=== PATIENT | male | born 1965 ===

== ENCOUNTER 2024-12-05 07:45 | Inpatient (IN) | payer OTHER ==
[~2024-12-05] VITALS: Ht 172.7 cm; Wt 92.5 kg
[2024-12-05 08:32] LABS: BASO % 0.6 % (0.1-1.2); EOS # 0.10 (0.04-0.54); EOS % 1.5 % (0.7-7.0); LYMPH # 1.49 (1.18-3.74); LYMPH % 22.6 % (19.3-53.1); MEAN PLATELET VOLUME 9.70 fl (9.4-12.4); MONO # 0.60 (0.24-0.82); MONO % 9.1 % (4.7-12.5); NEUT # 4.33 (1.56-6.13); NEUT % 65.9 % (34.0-71.1); RED CELL DISTRIBUTION WIDTH 13.2 % (11.6-14.4)
[2024-12-05 08:44] LABS: COVID-19 AG NEGATIVE (NEGATIVE)
[2024-12-05 08:45] LABS: URINE APPEARANCE Clear; URINE BILIRRUBIN Negative (NEGATIVE); URINE BLOOD Negative; URINE COLOR Yellow; URINE GLUCOSE Negative (NEGATIVE); URINE KETONE Trace (NEGATIVE); URINE LEUKOCYTE Negative; URINE NITRATE Negative; URINE PROTEIN Negative (NEGATIVE); URINE UROBILINOGEN 1.0 E.U./dl
[2024-12-05 08:46] LABS: URINE RBC 3.6 uL (0.0-20.8)
[2024-12-05 08:51] LABS: INR 1.03
[2024-12-05 08:55] LABS: URINE BACTERIA 3.5 uL (0.0-1933); URINE CAST 0.00 uL (0.0-1.40); URINE EPITHELIAL CELLS 0.3 uL (0.0-38.8); URINE WBC 1.0 uL (0.0-23.2)
[2024-12-05] MEDS ORDERED: ATIVAN0.5 M1 PO (09:04)
[2024-12-05] MEDS ORDERED: LIPITOR20 MG PO (09:04)
[2024-12-05] MEDS ORDERED: LEXAPRO20 MG PO (09:04)
[2024-12-05] MEDS ORDERED: WELLBUTRIN XL300 MG PO (09:05)
[2024-12-05] MEDS ORDERED: FOSAMAX70 MG PO (09:05)
[2024-12-05] MEDS ORDERED: MULTI VITAMIN1 EACH PO (09:07)
[2024-12-05 09:08] VITALS: BP 121/82
[2024-12-05 09:34] LABS: BUN CREA RATIO 19.0 (7.0-25.0); CREATININE SERUM 0.97 mg/dL (0.70-1.30); GFR 79.77; GLUCOSE FASTING 86.0 mg/dL (65-100); OSMOLALITY SERUM 284.0 MOSM/KG (275-295)
[2024-12-05 11:44] LABS: RH NEGATIVE
[2024-12-11] MEDS ORDERED: HEMOSTATIC MATRIX 1 KIT KIT TOP ONE (06:49)
[2024-12-11] MEDS ORDERED: SURGIFLO APPLICATOR 1 EACH APPL TOP ONE (06:49)
[2024-12-11] MEDS ORDERED: BUPIVACAINE HCL/MPF 0.5% 30ML VIAL ONE (06:49)
[2024-12-11] MEDS ORDERED: CEFAZOLIN SODIUM 1,000 MG VIAL ONE (06:56)
[2024-12-11] MEDS ORDERED: ENOXAPARIN SODIUM 40 MG/0.4 ML SYRINGE SUBCUTANEO ONE (06:56)
[2024-12-11] MEDS ORDERED: SUGAMMADEX SODIUM 200 MG/2 ML VIAL IV ONE (07:40)
[2024-12-11] MEDS ORDERED: RINGERS SOLUTION,LACTATED 1,000 ML IV SCH (11:30)
[2024-12-11] MEDS ORDERED: MORPHINE SULFATE 4 MG/ML CARTRIDGE IV PRN (11:30)
[2024-12-11] MEDS ORDERED: ONDANSETRON HCL 2 MG/ML VIAL IV PRN (11:30)
[2024-12-11] MEDS ORDERED: GABAPENTIN 300 MG CAPSULE PO SCH (17:00)
[2024-12-11] MEDS ORDERED: GABAPENTIN 300 MG CAPSULE PO ONE (17:25)
[2024-12-11 19:17] VITALS: BP 115/75; O2SAT 98
[2024-12-11] MEDS ORDERED: CEFAZOLIN SODIUM 1,000 MG VIAL IV SCH (21:00)
[2024-12-11] MEDS ORDERED: DOCUSATE SODIUM 100MG CAP PO SCH (21:00)
[2024-12-11] MEDS ORDERED: FAMOTIDINE/PF 20 MG/2 ML VIAL IV SCH (21:00)
[2024-12-12 00:45] VITALS: BP 102/68; O2SAT 98
[2024-12-12 06:19] LABS: BASO % 0.4 % (0.1-1.2); EOS # 0.14 (0.04-0.54); EOS % 1.8 % (0.7-7.0); LYMPH # 1.57 (1.18-3.74); LYMPH % 20.1 % (19.3-53.1); MEAN PLATELET VOLUME 10.20 fl (9.4-12.4); MONO # 0.86 (0.24-0.82); MONO % 11.0 % (4.7-12.5); NEUT # 5.19 (1.56-6.13); NEUT % 66.4 % (34.0-71.1); RED CELL DISTRIBUTION WIDTH 13.2 % (11.6-14.4)
[2024-12-12 06:50] LABS: BUN CREA RATIO 13.0 (7.0-25.0); CREATININE SERUM 0.93 mg/dL (0.70-1.30); GFR 83.74; GLUCOSE FASTING 91.0 mg/dL (65-100); OSMOLALITY SERUM 282.0 MOSM/KG (275-295)
[2024-12-12 08:00] VITALS: BP 105/68; O2SAT 96
[2024-12-12] MEDS ORDERED: PATIENTS OWN MEDICATION (MEDICAMENTO EN PISO) PO SCH (09:00)
[2024-12-12] MEDS ORDERED: ENOXAPARIN SODIUM 40 MG/0.4 ML SYRINGE SUBCUTANEO SCH (09:00)
[2024-12-12] MEDS ORDERED: BUPROPION HCL 150 MG TABLET.SA PO SCH (09:00)
[2024-12-12] MEDS ORDERED: SUGAMMADEX SODIUM 200 MG/2 ML VIAL IV ONE (11:00)
== END 2024-12-12 14:40 | disposition home or self-care (01) | DRG 708 ==
LOC: O/R 12-11 07:22 → SURH 12-11 07:22 → MEDJ 12-11 16:53 → SURH 12-11 18:22
PROVIDERS: ADMIT Urology; ATTEND Urology
PROC: 8E0W4CZ Robotic Assisted Procedure of Trunk Region, Percutaneous Endoscopic Approach (ICD-10-PCS; 2024-12-11)
PROC: 0VT04ZZ Resection of Prostate, Percutaneous Endoscopic Approach (ICD-10-PCS; principal; 2024-12-11 12:30)
DX: C61 Malignant neoplasm of prostate (principal)
CPT/HCPCS: 55866; S2900